=== PATIENT | male | born 1990 | race Caucasian/White ===

== ENCOUNTER 2016-09-08 23:30 | Emergency (ER) | payer SELFPAY ==
[~2016-09-08] VITALS: Ht 175.3 cm; Wt 91.9 kg
[2016-09-09 00:24] LABS: HEMATOCRIT 43.2 % (38.0-50.0); MCH 31.3 PG (29.0-34.0); MCHC 35.2 G/DL (30.0-36.0); MCV 88.9 FL (86-99); MEAN PLAT.VOLUME 10.2 uM^3 (9.0-12.4); PLATELET COUNT 208 K/uL (156-360); RBC DIS.WIDTH-CV 11.6 % (11.8-14.6); RBC DIS.WIDTH-SD 37.3 % (39-53); RED BLOOD COUNT 4.86 M/uL (4.00-5.50); WHITE BLOOD COUNT 9.8 K/uL (4.1-10.2)
[2016-09-09 00:37] LABS: CHLORIDE 104 mEq/L (99-109); POTASSIUM 3.5 mEq/L (3.7-5.4); SODIUM 139 mEq/L (136-147)
[2016-09-09 00:38] LABS: GLUCOSE 95 mg/dL (70-99)
[2016-09-09 00:40] LABS: ANION GAP 10 MEQ/L (2-14)
[2016-09-09 00:42] LABS: GFR ESTIMATE (CALCULATED) > 59 mL/min/
[2016-09-09 00:43] LABS: UREA NITROGEN (BUN) 8 mg/dL (9-23)
[2016-09-09 00:51] LABS: TROP-I INTERPRETATION NEGATIVE; TROPONIN-I < 0.01 ng/mL (0.0-0.30)
[2016-09-09 02:23] LABS: D-DIMER ELISA 0.23 mg/L FEU (< 0.57)
[2016-09-09 02:29] LABS: TROP-I INTERPRETATION NEGATIVE; TROPONIN-I < 0.01 ng/mL (0.0-0.30)
[2016-09-09] MEDS ORDERED: NAPROXEN500 MG PO (02:32)
[2016-09-09 02:49] VITALS: BP 148/93
== END 2016-09-09 02:54 | disposition home or self-care (01) ==
LOC: EME 23:30
PROVIDERS: Physician Assistant Medical
DX: M94.0 Chondrocostal junction syndrome [Tietze] (principal); R07.9 Chest pain, unspecified; F17.200 Nicotine dependence, unspecified, uncomplicated
CPT/HCPCS: 71020; 80048; 84484; 85027; 85379; 93005; 99281; 99284

== ENCOUNTER 2017-11-16 12:42 | Emergency (ER) | payer OTHER ==
[~2017-11-16] VITALS: Ht 175.3 cm; Wt 74.9 kg
[~2017-11-16 12:42] MED LIST: NAPROXEN500 MG PO
[2017-11-16] MEDS ORDERED: FLEXERIL10 MG PO (14:24)
[2017-11-16] MEDS ORDERED: NAPROSYN500 MG PO (14:24)
[2017-11-16 14:30] VITALS: BP 124/78
== END 2017-11-16 14:32 | disposition home or self-care (01) ==
LOC: EME 12:42
DX: R07.81 Pleurodynia (principal); M25.511 Pain in right shoulder; V49.50XA Passenger injured in collision with unspecified motor vehicles in traffic accident, initial encounter; Y92.414 Local residential or business street as the place of occurrence of the external cause; Z71.6 Tobacco abuse counseling; F17.200 Nicotine dependence, unspecified, uncomplicated
CPT/HCPCS: 71101; 99281; 99284